=== PATIENT | female | born 1975 | race Caucasian/White ===

== ENCOUNTER → 2017-08-01 | Outpatient (CLI) | payer OTHER ==
[~2017-08-01] MED LIST: Adderall 20 MG20 MG; BENADRYL OTC PO; DIPH50 PO; Metformin HCl1000 MG PO; OMEP20ER PO; PRED20 PO; Synthroid25 MCG PO
== END ==
LOC: LAB 13:00 → LAB SHORT 13:00
DX: F90.0 Attention-deficit hyperactivity disorder, predominantly inattentive type (principal); Z79.899 Other long term (current) drug therapy
CPT/HCPCS: G0480

== ENCOUNTER → 2020-11-07 | Outpatient (CLI) | payer OTHER ==
[2020-11-07 16:23] LABS: Alanine Aminotransfer (ALT/SGP 168 U/L (12-78); Albumin, Blood 3.1 g/dL (3.4-5.0); Albumin/Globulin Ratio 0.6 (0.8-1.8); Alk Phos 123 U/L (40-126); Anion Gap 13 mmol/L (6-16); Aspartate Aminotrans (AST/SGOT 84 U/L (12-37); Bilirubin, Total 0.4 mg/dL (0.1-1.0); Blood Urea Nitrogen 10 mg/dL (8-24); Bun/Creatinine Ratio 13.7 (12.0-20.0); CO2, Blood 24 mmol/L (21-32); Chloride, Blood 106 mmol/L (98-108); Creatinine, Blood 0.73 mg/dL (0.40-1.00); Globulin, Blood 5.2 g/dL (2.2-4.0); Glomerular Filtration Rate >60 (60-); Glucose, Blood 145 mg/dL (70-99); Potassium, Blood 4.4 mmol/L (3.5-5.5); Sodium, Blood 143 mmol/L (136-145); Total Protein, Blood 8.3 g/dL (6.4-8.2)
== END | disposition home or self-care (01) ==
LOC: LAB SHORT 16:00 → LAB 16:00
PROVIDERS: Family Medicine
DX: J96.01 Acute respiratory failure with hypoxia (principal)
CPT/HCPCS: 80053; 85379; 86140

== ENCOUNTER 2022-10-01 07:55 | Day surgery (SDC) | payer OTHER ==
[~2022-10-01] VITALS: Ht 167.6 cm; Wt 101.8 kg
[2022-10-01] MEDS ORDERED: Adderall 20 MG20 MG PO (08:53)
[2022-10-01] MEDS ORDERED: IBUP800 PO (08:55)
--- NOTE | 2022-10-01 10:56 | NUR ---
10/01/22 1056 JR CERVANTES PT IN BED. NAUSEA BIGGEST PROBLEM- WELL HEADACH. PT DRINKS CAFFIENE DAILY. SALTINES AND PEPSI GIVEN. COOL COMPRESSES ON FOREHEAD AND NECK. PT STATES GONZALEZ AND NAUSEA IS GETTING BETTER. SCOPE PATCH PLACED ON PT IN PACU.
[2022-10-01 11:09] VITALS: BP 110/61
== END 2022-10-01 11:40 | disposition home or self-care (01) ==
LOC: ORSCSDS 07:55
PROVIDERS: Orthopaedic Surgery
PROC: 0SBC4ZZ Excision of Right Knee Joint, Percutaneous Endoscopic Approach (ICD-10-PCS; principal; 2022-10-01 09:30)
DX: S83.281A Other tear of lateral meniscus, current injury, right knee, initial encounter (principal); M17.11 Unilateral primary osteoarthritis, right knee; M94.261 Chondromalacia, right knee; E66.9 Obesity, unspecified; Z68.36 Body mass index [BMI] 36.0-36.9, adult; E78.5 Hyperlipidemia, unspecified; I10 Essential (primary) hypertension; E03.9 Hypothyroidism, unspecified; E11.9 Type 2 diabetes mellitus without complications; F90.9 Attention-deficit hyperactivity disorder, unspecified type; F41.9 Anxiety disorder, unspecified; F32.A Depression, unspecified; G47.33 Obstructive sleep apnea (adult) (pediatric); Z79.899 Other long term (current) drug therapy; Z79.84 Long term (current) use of oral hypoglycemic drugs
CPT/HCPCS: 82947; A9270; J0690; J1100; J1885; J2250; J2405; J2704; J3010; J7120

== ENCOUNTER 2024-12-14 10:09 | Day surgery (SDC) | payer OTHER ==
[2024-12-14] VITALS (12 sets, daily range): BP systolic 104–130; BP diastolic 43–70
[~2024-12-14] VITALS: Ht 167.6 cm; Wt 108.9 kg
[~2024-12-14 10:09] MED LIST changes: +ALDACTONE100 MG PO; +Adderall Xr 2525 MG PO; +BCP PO; +Co Q-10300 MG PO; +DEPO-TESTO200 MG/1 M SC; +GLUCHON PO; +IBUP800 PO; +LATA.005SO BOTHEYES; +LEVSOD100 PO; +MAGNESIUM PO; +MELATONIN TR10 MG PO; +MOBIC15 MG PO; +Methocarbamol500 MG PO; +ONDA4 PO; +OZEMPIC2 MG/0.75 SC; +PROG100 PO; -Synthroid25 MCG PO; +TRAM50 PO; +TRAZ100 PO; +Vitamin B Comple1 EA PO
[2024-12-14] MEDS ORDERED: Chlorhexidine Mouth Care 15 ML UDC MT SCH (11:40)
[2024-12-14] MEDS ORDERED: Ropivacaine 0.5% HCl/Pf 123.125 MG,EPINEPHrine HCL 0.25 MG,Ketorolac Tromethamine 15 MG... INFIL SCH (11:40)
[2024-12-14] MEDS ORDERED: CeFAZolin Sodium 2,000 MG in NS 100 ML IV SCH ×2 (11:40→22:15)
[2024-12-14] MEDS ORDERED: Tranexamic Acid 100 ML IV SCH (11:40)
--- NOTE | 2024-12-14 12:45 | NUR ---
History, Chart, Medications and Allergies reviewed before start of procedure.Pre-Op teaching done. Pt verbalizes understanding. Patient confirms NPO status and agrees with scheduled surgery.
[2024-12-14] MEDS ORDERED: HYDROmorphone HCl/Pf 1MG SYR IV PRN ×3 (12:50→15:55)
[2024-12-14] MEDS ORDERED: FLU VACC TS2025-26(6MOS UP)/PF 45 MCG/0.5 ML SYRINGE IM SCH (12:50)
[2024-12-14] MEDS ORDERED: Magnesium Hydroxide Conc 10 ML UDC PO PRN (12:55)
[2024-12-14] MEDS ORDERED: Ondansetron HCl 2 MG / ML 2ML Vial IV PRN ×2 (12:55→15:55)
[2024-12-14] MEDS ORDERED: Metoclopramide HCl 5MG / ML 2ML Vial IV PRN (13:00)
[2024-12-14] MEDS ORDERED: HYDROmorphone HCl/Pf 1MG SYR ONE (14:35)
[2024-12-14] MEDS ORDERED: FentaNYL Citrate 50 MCG/ML 2 ML Injection ONE ×2 (14:39→15:51)
--- NOTE | 2024-12-14 14:46 | NUR ---
12/14/24 1446 Tarsha Celestin SPINAL BLOCK COMPLETED BY UPON ENTRY TO OR.
[2024-12-14] MEDS ORDERED: Ketorolac Tromethamine 30mg Vial ONE (15:43)
[2024-12-14] MEDS ORDERED: FentaNYL Citrate 50 MCG/ML 2 ML Injection IV PRN ×2 (15:55)
[2024-12-14] MEDS ORDERED: ePHEDrine Sulfate 50 MG/ML 1ML Injection IV PRN (15:55)
[2024-12-14] MEDS ORDERED: Insulin Regular 100 UNIT/ML 10ML Vial SC SCH (16:30)
[2024-12-14] MEDS ORDERED: Phenylephrine HCl 100 MCG/ML-NS 10MLSYR (1MG/10ML) IV ONE (17:42)
[2024-12-14] MEDS ORDERED: Dexamethasone Sod Phos 10 MG/ML 1ML VIAL IV ONE (17:42)
[2024-12-14] MEDS ORDERED: Ondansetron HCl 2 MG / ML 2ML Vial IV ONE (17:42)
[2024-12-14] MEDS ORDERED: Ketorolac Tromethamine 15mg Vial IV SCH (18:00)
--- NOTE | 2024-12-14 18:31 | NUR ---
SHIFT SUMMARY PT HAS NOT FELT THE URGE TO URINATE SINCE ARIVAL TO UNIT YET. PT STATES HER FEET AT "A LITTLE TINGLY" STILL, BUT SHE IS ABLE TO MOVE HER LEGS AROUND WELL. VS REVIEWED. PT PAIN TOLERABLE AT A 3/10. FRIEND AT BEDSIDE. PT AGREEABLE TO STAYING THE NIGHT IF NEEDED IN ORDER TO SEE PHYSICAL THERAPY TOMORROW.
[2024-12-14] MEDS ORDERED: MetFORMIN HCl 500 mg PO SCH (21:00)
[2024-12-14] MEDS ORDERED: Latanoprost 0.005% Opth Soln 2.5 ML BOTHEYES SCH (21:00)
--- NOTE | 2024-12-15 04:44 | NUR ---
SHIFT SUMMARY JOSÉ WAS ALERT AND FULLY ORIENTED ON ASSESSMENT. PT PAIN WELL MANAGED. SENSATION/ CIRCULAION TO BLE INTACT. DENIES NAUSEA, SOB, CHEST PAIN. AMBULATING/ VOIDING APPROPRIATELY. DRESSING C/D/I NO ACUTE EVENTS TONIGHT. NO NOTED CHANGES TO PT CONDITION.
[2024-12-15 04:45] LABS: BASOPHILS ABSOLUTE AUTO 0.04 K/mm3 (0.00-0.23); BASOPHILS PERCENT AUTO 0 % (0-2); EOSINOPHILS ABSOLUTE AUTO 0.01 K/mm3 (0.00-0.68); EOSINOPHILS PERCENT AUTO 0 % (0-6); Hematocrit 37.2 % (33.0-51.0); Hemoglobin 11.9 g/dL (11.5-16.0); IMMATURE GRAN ABSOLUTE AUTO 0.10 K/mm3 (0.00-0.10); IMMATURE GRAN PERCENT AUTO 1 % (0-1); LYMPHOCYTES ABSOLUTE AUTO 1.55 K/mm3 (0.84-5.20); LYMPHOCYTES PERCENT AUTO 8 % (21-46); MONOCYTES ABSOLUTE AUTO 0.92 K/mm3 (0.16-1.47); MONOCYTES PERCENT AUTO 5 % (4-13); Mean Corpuscular HGB Conc 32.0 g/dL (31.5-36.5); Mean Corpuscular Volume 86 fL (80-100); NEUTROPHILS ABSOLUTE AUTO 15.81 K/mm3 (1.96-9.15); NEUTROPHILS PERCENT AUTO 86 % (41-73); NRBC ABSOLUTE 0.00 K/mm3 (0.00-0.02); NRBC Auto 0.0 /100 WBC (0.0-0.2); Platelet Count 311 K/mm3 (150-400); RDW Coefficient Variation 12.2 % (11.7-14.2); RDW Standard Deviation 38.7 fL (35.1-46.3)
[2024-12-15 05:07] LABS: Anion Gap 10.0 mmol/L (3-11); Blood Urea Nitrogen 17.0 mg/dL (8-24); CO2, Blood 24.0 mmol/L (21-32); Calcium, Blood 9.3 mg/dL (8.5-10.1); Chloride, Blood 107.0 mmol/L (98-108); Creatinine, Blood 0.8 mg/dL (0.40-1.00); Glucose, Blood 153.0 mg/dL (70-99); Magnesium, Blood 2.1 mg/dL (1.6-2.4); Potassium, Blood 4.2 mmol/L (3.5-5.5); Sodium, Blood 137.0 mmol/L (136-145)
[2024-12-15 06:01] VITALS: BP 109/50
[2024-12-15 07:03] VITALS: BP 111/61
[2024-12-15] MEDS ORDERED: ACET500 PO (07:57)
[2024-12-15] MEDS ORDERED: ASPI81CH PO (07:59)
[2024-12-15] MEDS ORDERED: DOCU100 PO (08:00)
[2024-12-15] MEDS ORDERED: OXYC5 PO (08:00)
[2024-12-15] MEDS ORDERED: Vitamin B Complex 1 EA Softgel PO SCH (09:00)
[2024-12-15] MEDS ORDERED: Amphet Asp/Amphet/D-Amphet 15 MG CapCR PO SCH (09:00)
[2024-12-15] MEDS ORDERED: Amphet Asp/Amphet/D-Amphet 10 MG CapCR PO SCH (09:00)
== END 2024-12-15 10:13 | disposition home or self-care (01) ==
LOC: ORSCMMR 10:09 → ORD 11:30 → SURS 16:17 → ORD 16:30 → ORSCMMR 12-15 10:13
PROVIDERS: Orthopaedic Surgery
PROC: 0SRC0JA Replacement of Right Knee Joint with Synthetic Substitute, Uncemented, Open Approach (ICD-10-PCS; principal; 2024-12-14 13:30)
PROC: 8E0Y0CZ Robotic Assisted Procedure of Lower Extremity, Open Approach (ICD-10-PCS; principal; 2024-12-14 13:30)
DX: M17.11 Unilateral primary osteoarthritis, right knee (principal); I10 Essential (primary) hypertension; E11.9 Type 2 diabetes mellitus without complications; G47.33 Obstructive sleep apnea (adult) (pediatric); E03.9 Hypothyroidism, unspecified; Z79.84 Long term (current) use of oral hypoglycemic drugs; Z79.899 Other long term (current) drug therapy; Z79.85 Long-term (current) use of injectable non-insulin antidiabetic drugs
CPT/HCPCS: 27447; 0055T; 36415; 73560-RT; 80048; 82947; 83735; 85025; 97110; 97116; 97162; 97530; A9270; C1713; C1776; J0166; J0690; J0735; J1100; J1171; J1885; J2371; J2405; J2704; J2795; J3010; J7120